=== PATIENT | female | born 1990 | race Caucasian/White ===

== ENCOUNTER 2016-12-07 07:48 | Emergency (ER) | payer OTHER ==
[~2016-12-07] VITALS: Ht 152.4 cm; Wt 52.2 kg
[~2016-12-07 07:48] MED LIST: BENTYL20 MG PO; CIPRO500 M1 PO; FLUOXETINE HYDR20 MG PO; IBUPROFEN600 M1 PO; MACROBID 100 M100 MG PO; MOTRIN800 MG PO; NOR-QD0.35 MG PO; PRENATAL1 TA1 PO; PYRIDIUM200 M1 PO; ULTRAM50 M1 PO; VISTARIL50 M1 PO; ZOFRAN4 M2 PO
--- NOTE | 2016-12-07 08:07 | ED GI/GU/ABDOMINAL COMPLAINT ---
History of Present Illness General Chief Complaint: General Adult Stated Complaint: ANXIETY, VOMITING Source: patient, old records Exam Limitations: no limitations Vital Signs & Intake/Output Vital Signs & Intake/Output Vital Signs Date Time Temp Pulse Resp B/P Pulse O2 O2 Flow FiO2 Ox Delivery Rate 12/07 0905 90 16 118/72 99 Room Air 12/07 0751 98.0 95 20 121/76 97 Room Air Allergies Coded Allergies: prednisone (Severe, RASH, HIVES 08/04/16) ciprofloxacin (From CIPRO) (Intermediate, RASH 08/04/16) Sulfa (Sulfonamide Antibiotics) (BREAKS OUT IN RED RASH PER PT 08/04/16) sulfamethoxazole (From Bactrim) (BREAKS OUT IN RED RASH PER PT 08/04/16) trimethoprim (From Bactrim) (BREAKS OUT IN RED RASH PER PT 08/04/16) Reconcile Medications Butalb/Acetaminophen/Caffeine (Fioricet 50-300-40 MG Capsule) 50 MG-300 MG-40 MG CAPSULE 1 TAB PO Q6HR PRN HEADACHE Ondansetron (Zofran Odt) 4 MG TAB.RAPDIS 1 TAB SL TID PRN nausea Triage Note: PT TO ED C/O VOMITING SINCE WAKING UP AT 0530 THIS AM. ALSO STATES 2 ANXIETY ATTACKS SINCE WAKING UP. C/O SHARP HEAD PAIN. DENIES DIARRHEA. Triage Nurses Notes Reviewed? yes LMP (ages 10-50): November 01 2016 ? n Is pt currently ? No Onset: Abrupt Duration: hour(s): (2), intermittent, waxing and waning Timing: recent history Quality/Severity: cramping Severity Numbers: 4 Location: generalized abdomen Radiation: no radiation Activities at Onset: sleep Prior Abdominal Problems: none No Modifying Factors: none Associated Symptoms: denies HPI: This is a 26-year-old female presents emergency room for evaluation complaining of sudden onset of nausea vomiting that awoke her from sleep at around 6:00 this morning. She is complaining of generalized intermittent crampy abdominal pain nonradiating it comes on prior to vomiting. She denies any change in her bowel movements no diarrhea and no sick contacts. She is not taken anything for her symptoms. She is also complaining of a generalized headache which she treatments due to her vomiting. She denies recent alcohol or drug use no fever or chills. No urinary symptoms. The patient's abdominal surgery is significant for a cholecystectomy and tubal ligation. Her last menstrual cycle was November 01, she denies chance of . She is not taken anything for her symptoms (GURWINDER MANJARREZ) Past History Travel History Traveled to [place] past 21 day No Medical History Any Pertinent Medical History? 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 No (GURWINDER MANJARREZ) Review of Systems Review of Systems Constitutional: Reports: see HPI. All Other Systems: Reviewed and Negative Comments Review of systems: See HPI, All other systems negative. Constitutional, no chills no fever, no malaise HEENT: no sore throat no congestion, no ear pain Cardiovascular: No chest pain , no palpitation Skin, no jaundice no rashes, no change in skin Respiratory: No dyspnea no cough GI: nausea vomiting, no diarrhea, no bloating/constipation : No dysuria No hematuria, no frequency Muscle skeletal: No joint pain, no joint swelling, no back pain, no neck pain, Neurologic: no headache Psych: No stress Heme/endocrine: No bruising no bleeding Immunology: No lymphadenopathy (GURWINDER MANJARREZ) Physical Exam Physical Exam General Appearance: well developed/nourished, no apparent distress, alert, awake Gastrointestinal: soft, non-tender Comments: Well-developed well-nourished person in no acute distress HEENT: Normal EENT exam; PERRL, EOMI, HEAD is atraumatic. moist mucous membranes. Neck: Supple, no lymphadenopathy Back: Nontender, no CVA tenderness. Full range of motion Cardiovascular: Regular rate and rhythms no murmurs rubs Respiratory: No respiratory distress. Patient speaking in full complete sentences. 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 Normal bowel sounds. No rebound/guarding Extremity: No edema, full range of motion of extremities Neuro: Alert oriented x3, motor sensory normal, There were no obvious focal neurologic abnormalities. Skin: No appreciable rash on exposed skin, skin is warm and dry. No jaundice no diaphoresis Psych: Mood and affect is normal, memory and judgment is normal. Core Measures ACS in differential dx? No Severe Sepsis Present: No Septic Shock Present: No (GURWINDER MANJARREZ) Progress Differential Diagnosis: appendicitis, biliary colic, bowel obstruction, colon cancer, diverticulitis, ectopic , gastritis, hepatitis, hernia, inflamm bowel dis, intrauterine , kidney stone, ovarian cyst, pancreatitis, PID /cervicitis, peptic ulcer, PUD/GERD, perforated viscous, SBO, threatened AB, UTI /pyelo Plan of Care: 12/07/2016 8:58:48 AM REPEAT EVALUATION PATIENT IS FEELING IMPROVED AFTER ODT ZOFRAN. PATIENT CLINICALLY APPEARS WELL HER ABDOMEN IS SOFT NONTENDER. PATIENT WILL GO HOME WITH ZOFRAN AND fioricet, tolerating po challenge here. I advised return immediately for her symptoms worsen despite medications, or has any other concerns. She feels comfortable to this plan I had an extensive conversation regarding need for close follow up with their primary care physician this week as well as return precautions. I answered all of their questions, they feel comfortable with the plan and follow-up care. I discussed the medications that they will receive with the patient. I gave them signs and symptoms that could indicate an adverse reaction. I have advised them to limit their activities until they can see how they respond to the medication. Initial ED EKG: none (GURWINDER MANJARREZ) Departure Departure Time of Disposition: 0854 Disposition: HOME OR SELF CARE Condition: Stable Clinical Impression Primary Impression: Nausea & vomiting Referrals: [facility] (PCP/Family) Additional Instructions: zofran for nausea, fioricet for headache. [facility] were [facility] to [facility]. Barton diet clear liquids only advance diet as tolerated. Return to the emergency room anytime sooner if your symptoms persist or worsen despite medication we have any other concerns Departure Forms: Customer Survey D/C INS-APPENDICITIS EXCLUSION General Discharge Information Prescriptions: Current Visit Scripts Ondansetron (Zofran Odt) 1 TAB SL TID PRN nausea #10 TAB Butalb/Acetaminophen/Caffeine (Fioricet 50-300-40 MG Capsule) 1 TAB PO Q6HR PRN HEADACHE #12 TAB (GURWINDER MANJARREZ) PA/RESEARCH FOOD TECHNOLOGIST Co-Sign Statement Statement: ED Attending supervision documentation- [] I saw and evaluated the patient. I have also reviewed all the pertinent lab results and diagnostic results. I agree with the findings and the plan of care as documented in the PA's/RESEARCH FOOD TECHNOLOGIST's documentation. [X] I have reviewed the ED Record and agree with the PA's/RESEARCH FOOD TECHNOLOGIST's documentation. [] Additions or exceptions (if any) to the PAs/RESEARCH FOOD TECHNOLOGIST's note and plan are summarized below: [] (GINETTE SIDHU DO
[2016-12-07] MEDS ORDERED: FIORICET 50-301 EACH PO (08:56)
[2016-12-07] MEDS ORDERED: ZOFRAN ODT4 M1 SL (08:56)
[2016-12-07 09:05] VITALS: BP 118/72
== END 2016-12-07 09:06 ==
LOC: ERH 07:48
DX: R11.2 Nausea with vomiting, unspecified (principal)
CPT/HCPCS: J3101